=== PATIENT | female | born 1980 | race Asian ===

== ENCOUNTER → 2016-05-30 | Outpatient (CLI) | payer OTHER ==
[~2016-05-30] MED LIST: DIPH50CA62 PO; DOCO100C PO; DOCU-30 PO; IBUP-1222 PO; IBUP200T48 PO; LIDOCAINE 1%-EPI 1:100K, 20ML ONE; OXYC-302 PO; PNV1TABL4 PO; PSEU120T9 PO; SODIUM BICARBONATE 4.2%, 5ML ONE; VITAMIN C PO
== END | disposition home or self-care (01) ==
LOC: CFH 07:37
PROVIDERS: ATTEND Obstetrics & Gynecology
DX: N63 Unspecified lump in breast (principal)
CPT/HCPCS: 19083; 88305; J3490